=== PATIENT | female | born 1955 | race Caucasian/White ===

== ENCOUNTER 2019-10-12 21:15 | Emergency (ER) | payer MEDICAID ==
[~2019-10-12] VITALS: Ht 157.5 cm; Wt 55.7 kg
[~2019-10-12 21:15] MED LIST: PRED50TA PO; RANI-366 PO
[2019-10-12] MEDS ORDERED: orphenadrine citrate 60mg/2ml inj. IM ONE (22:50)
[2019-10-12] MEDS ORDERED: ketorolac tromethamine 15mg/ml inj. IM ONE (22:50)
[2019-10-12] MEDS ORDERED: CYCL-1 PO (23:26)
[2019-10-12] MEDS ORDERED: IBUP-1984 PO (23:26)
[2019-10-12 23:43] VITALS: BP 226/106
== END 2019-10-12 23:47 | disposition home or self-care (01) ==
LOC: ER 21:16
DX: M54.2 Cervicalgia (principal); M25.532 Pain in left wrist; I10 Essential (primary) hypertension; G89.29 Other chronic pain; F31.9 Bipolar disorder, unspecified; F12.90 Cannabis use, unspecified, uncomplicated; Z90.710 Acquired absence of both cervix and uterus; Z98.890 Other specified postprocedural states; Z88.5 Allergy status to narcotic agent; Z88.6 Allergy status to analgesic agent; Z88.0 Allergy status to penicillin; Z79.899 Other long term (current) drug therapy
CPT/HCPCS: 73080; 73110; 96372; 99284; J1885; J2360

== ENCOUNTER 2020-03-27 09:46 | Emergency (ER) | payer MEDICAID ==
[~2020-03-27] VITALS: Ht 160 cm; Wt 53.0 kg
[~2020-03-27 09:46] MED LIST changes: +CYCL-1 PO
[2020-03-27 10:00] VITALS: BP 173/97
[2020-03-27] MEDS ORDERED: DOXY100C76 PO (10:32)
[2020-03-27] MEDS ORDERED: CEPH500C5 PO (10:32)
[2020-03-27] MEDS ORDERED: TETanus/Pertussis (Acell)/Diphther VAC/PF (Tdap-Adult) 0.5ml syringe IMVAC ONE (10:40)
== END 2020-03-27 11:12 | disposition home or self-care (01) ==
LOC: ER 09:47
DX: L30.9 Dermatitis, unspecified (principal); I10 Essential (primary) hypertension; G89.29 Other chronic pain; F31.9 Bipolar disorder, unspecified; F17.200 Nicotine dependence, unspecified, uncomplicated; F12.90 Cannabis use, unspecified, uncomplicated; Z90.710 Acquired absence of both cervix and uterus; Z98.890 Other specified postprocedural states; Z90.89 Acquired absence of other organs; Z88.0 Allergy status to penicillin; Z88.6 Allergy status to analgesic agent; Z88.5 Allergy status to narcotic agent; Z88.8 Allergy status to other drugs, medicaments and biological substances; Z79.2 Long term (current) use of antibiotics; Z79.899 Other long term (current) drug therapy
CPT/HCPCS: 99283

== ENCOUNTER 2021-12-07 23:44 | Emergency (ER) | payer MEDICAID ==
[~2021-12-07] VITALS: Ht 157.5 cm; Wt 50.0 kg
[2021-12-07 23:53] VITALS: BP 152/80
--- NOTE | 2021-12-08 03:16 | NUR ---
PT IS BACK IN LOBBY, SAID SHE WAS WAITING OUTSIDE
== END 2021-12-08 06:39 | disposition left against medical advice (07) ==
LOC: ER 23:45
DX: U07.1 COVID-19 (principal); R05.9 Cough, unspecified; Z53.21 Procedure and treatment not carried out due to patient leaving prior to being seen by health care provider
CPT/HCPCS: 71045

== ENCOUNTER 2022-04-18 22:13 | Emergency (ER) | payer MEDICAID ==
[~2022-04-18] VITALS: Ht 157.5 cm; Wt 50.9 kg
[2022-04-18 22:42] VITALS: BP 168/96
[2022-04-19] MEDS ORDERED: ibuprofen tablet 400 MG TABLET PO ONE (01:10)
[2022-04-19] MEDS ORDERED: acetaminophen 325mg tablet PO ONE (01:10)
[2022-04-19 02:06] LABS: BASOPHILS % (AUTO) 0.3 % (0-1); EOSINOPHILS % (AUTO) 0 % (0-6); HEMATOCRIT 47.7 % (35.0-45.0); HEMOGLOBIN 16.1 g/dl (12.0-16.0); LYMPHOCYTES # (AUTO) 1.1 X10'3 (1.1-4.8); MEAN CORPUSCULAR HEMOGLOBIN 30.9 PG (27.0-31.0); MEAN CORPUSCULAR HGB CONC 33.7 g/dL (33.0-36.5); MEAN CORPUSCULAR VOLUME 91.6 FL (78-98); MEAN PLATELET VOLUME 8.6 FL (7.4-10.4); MONOCYTES # (AUTO) 0.3 X10'3 (0-0.9); MONOCYTES % (AUTO) 5.9 % (2-12); NEUTROPHILS # (AUTO) 4.2 X10'3 (1.8-7.7); NEUTROPHILS % (AUTO) 74.8 % (42-75); PLATELET COUNT 137 X10'3 (140-440); RED BLOOD COUNT 5.21 X10'6 (4.20-5.60); RED CELL DISTRIBUTION WIDTH 13.8 % (11.5-14.5); WHITE BLOOD COUNT 5.7 X10'3 (4.5-11.0)
[2022-04-19 02:15] LABS: D-DIMER 0.35 MG/L FEU (0-0.50)
[2022-04-19 02:17] LABS: ALANINE AMINOTRANSFERASE 11 U/L (12-78); ALBUMIN 3.6 G/DL (3.4-5.0); ALBUMIN/GLOBULIN RATIO 0.8 (1.1-1.5); ALKALINE PHOSPHATASE 103 IU/L (46-116); ANION GAP 10 (8-16); ASPARTATE AMINO TRANSFERASE 15 U/L (10-37); BILIRUBIN,TOTAL 0.4 MG/DL (0.1-1.0); BLOOD UREA NITROGEN 11 MG/DL (7-18); BUN/CREATININE RATIO 13.1 (6.6-38.0); CHLORIDE 101 MMOL/L (99-107); CREATININE 0.84 MG/DL (0.40-0.90); GLUCOSE 110 MG/DL (70-104); POTASSIUM 3.7 MMOL/L (3.5-5.1); SODIUM 135 MMOL/L (135-145); TOTAL CARBON DIOXIDE 24.4 MMOL/L (24-32); TOTAL PROTEIN 8.3 G/DL (6.4-8.2); eGFR 68 ML/MIN
== END 2022-04-19 04:47 | disposition left against medical advice (07) ==
LOC: ER 22:14
DX: S20.20XA Contusion of thorax, unspecified, initial encounter (principal); I10 Essential (primary) hypertension; F31.9 Bipolar disorder, unspecified; G89.29 Other chronic pain; F12.90 Cannabis use, unspecified, uncomplicated; Z88.0 Allergy status to penicillin; Z88.5 Allergy status to narcotic agent; Z88.6 Allergy status to analgesic agent; Z90.710 Acquired absence of both cervix and uterus; X58.XXXA Exposure to other specified factors, initial encounter; Y93.89 Activity, other specified; Y92.89 Other specified places as the place of occurrence of the external cause; Y99.8 Other external cause status
CPT/HCPCS: 36415; 71101; 80053; 84484; 85025; 85379; 93005; 99285

== ENCOUNTER 2024-10-15 18:35 | Emergency (ER) | payer MEDICAID ==
[~2024-10-15] VITALS: Ht 157.5 cm; Wt 41.1 kg
[2024-10-15 18:38] VITALS: BP 180/79; PULSE 103; RESP 20; TEMP 97.4; O2SAT 97
== END 2024-10-15 22:17 | disposition left against medical advice (07) ==
LOC: ER 18:36
DX: I10 Essential (primary) hypertension (principal); Z88.0 Allergy status to penicillin; Z88.8 Allergy status to other drugs, medicaments and biological substances; Z88.6 Allergy status to analgesic agent; Z53.21 Procedure and treatment not carried out due to patient leaving prior to being seen by health care provider